=== PATIENT | male | born 1980 | race Caucasian/White ===

== ENCOUNTER 2018-03-09 17:29 | Emergency (ER) | payer BC ==
--- NOTE | 2018-03-09 18:13 | EDM.PDOCBH ---
ED HPI GENERAL MEDICAL PROBLEM - General Chief Complaint: Behavioral/Psych Stated Complaint: DEPRESSION Time Seen by Provider: 03/09/18 17:55 Source of Information: Reports: Patient History Limitations: Reports: No Limitations - History of Present Illness INITIAL COMMENTS - FREE TEXT/NARRATIVE: Patient is a 38-year-old male with a long history of depression who presents ED complaining of suicidal thoughts. Denies any suicidal plans and has not attempted to commit suicide. States over the past 4 days he's just been experiencing increasing stress with work. 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 He states just recently returned from a treatment facility because he felt like he needed it. He was discharged on 15 February on Abilify. He discontinued the Abilify 2 weeks ago. States he was not making feeling any better. States he's been sleeping a lot and lacking motivation to do anything. He still been able to work with no issues. Goes to work returns home to asleep again. He is currently on no medications. He does not have any suicidal plans, homicidal ideations, hallucinations, or findings concerning for manic episodes. He's never undergone inpatient treatment for psychiatric evaluation. He states he did attempt suicide at age of 14 years of age via overdose. States he is working on a support system here locally. His family is all from [place]. Alcohol use is social 1-2 times a week. Smokes half pack to one pack per day. Does not have a primary care provider here locally. Does not have any additional past medical history and nor is taking any medications. When asked patient admits there is a family history of thyroid issues. - Related Data Allergies Allergy/AdvReac Type Severity Reaction Status Date / Time No Known Allergies Allergy Verified 03/09/18 17:40 Home Meds: Home Meds buPROPion HCl [Wellbutrin Xl] 150 mg PO QAM #30 tab.sr.24h 03/09/18 [Rx] Past Medical History - Past Health History Medical/Surgical History: Denies Medical/Surgical History Psychiatric History: Reports: Depression Social & Family History - Family History Family Medical History: Noncontributory - Tobacco Use Smoking Status *Q: Current Every Day Smoker Years of Tobacco use: 15 Packs/Tins Daily: 0.7 - Recreational Drug Use Recreational Drug Use: No ED ROS GENERAL - Review of Systems Review Of Systems: ROS reveals no pertinent complaints other than HPI. ED EXAM, BEHAVIORAL HEALTH - Physical Exam Exam: See Below Exam Limited By: No Limitations General Appearance: Alert, WD/WN, No Apparent Distress Eye Exam: Bilateral Eye: Normal Inspection Ears: Hearing Grossly Normal Nose: Normal Inspection Throat/Mouth: Normal Voice, No Airway Compromise Neck: Normal Inspection, Supple Respiratory/Chest: No Respiratory Distress, Lungs Clear, Normal Breath Sounds Cardiovascular: Normal Peripheral Pulses, Regular Rate, Rhythm, No Murmur Neurological: Alert, Normal Mood/Affect, CN II-XII Intact, Normal Cognition, No Motor/Sensory Deficits, Oriented x 3 Psychiatric: Alert, Normal Affect, Normal Cognition, Normal Mood, Oriented Skin Exam: Warm, Dry, Intact, Normal color, No rash COURSE, BEHAVIORAL HEALTH COMP - Course Vital Signs: Last Vital Signs Temp 97.8 F 03/09/18 17:34 Pulse 77 03/09/18 17:34 Resp 16 03/09/18 17:34 BP 145/89 H 03/09/18 17:34 Pulse Ox 98 03/09/18 17:34 Orders, Labs, Meds: Laboratory Tests 03/09/18 03/09/18 03/09/18 Range/Units 18:09 18:23 18:23 WBC 5.93 (4.23-9.07) K/mm3 RBC 5.19 (4.63-6.08) M/mm3 Hgb 15.6 (13.7-17.5) gm/L Hct 46.1 (40.1-51.0) % MCV 88.8 (79.0-92.2) fl MCH 30.1 (25.7-32.2) pg MCHC 33.8 (32.2-35.5) g/dl RDW Std Deviation 43.8 (35.1-43.9) fL Plt Count 270 (163-337) K/mm3 MPV 9.3 L (9.4-12.3) fl Neutrophils % (Manual) 55 (40-60) % Band Neutrophils % 0 (0-10) % Lymphocytes % (Manual) 39 (20-40) % Atypical Lymphs % 0 % Monocytes % (Manual) 4 (2-10) % Eosinophils % (Manual) 2 (0.8-7.0) % Basophils % (Manual) 0 L (0.2-1.2) Platelet Estimate Adequate Plt Morphology Comment Normal RBC Morph Comment Normal Sodium 140 (136-145) mEq/L Potassium 3.8 (3.5-5.1) mEq/L Chloride 107 (98-107) mEq/L Carbon Dioxide 28 (21-32) mEq/L Anion Gap 8.8 (5-15) BUN 13 (7-18) mg/dL Creatinine 1.0 (0.7-1.3) mg/dL Est Cr Clr Drug Dosing 104.58 mL/min Estimated GFR (MDRD) > 60 (>60) mL/min BUN/Creatinine Ratio 13.0 L (14-18) Glucose 110 H (74-106) mg/dL Calcium 8.8 (8.5-10.1) mg/dL Total Bilirubin 0.4 (0.2-1.0) mg/dL AST 46 H (15-37) U/L ALT 82 H (16-63) U/L Alkaline Phosphatase 66 (46-116) U/L Total Protein 7.2 (6.4-8.2) g/dl Albumin 3.5 (3.4-5.0) g/dl Globulin 3.7 gm/dL Albumin/Globulin Ratio 1.0 (1-2) TSH 3rd Generation 1.967 (0.358-3.74) uIU/mL Urine Color (Yellow) Urine Appearance (Clear) Urine pH (5.0-8.0) Ur Specific Glady (1.005-1.030) Urine Protein (Negative) Urine Glucose (UA) (Negative) Urine Ketones (Negative) Urine Occult Blood (Negative) Urine Nitrite (Negative) Urine Bilirubin (Negative) Urine Urobilinogen (0.2-1.0) Ur Leukocyte Esterase (Negative) Urine RBC (0-5) /hpf Urine WBC (0-5) /hpf Ur Epithelial Cells (0-5) /hpf Urine Bacteria (FEW) /hpf Urine Mucus (FEW) /hpf Salicylates 1.7 L (2.8-20) mg/dL Urine Opiates Screen (NEGATIVE) Ur Buprenorphine Scrn (NEGATIVE) Ur Oxycodone Screen (NEGATIVE) Urine Methadone Screen (NEGATIVE) Ur Propoxyphene Screen (NEGATIVE) Acetaminophen 0 L (10-30) ug/mL Ur Barbiturates Screen (NEGATIVE) Ur Tricyclics Screen (NEGATIVE) Ur Phencyclidine Scrn (NEGATIVE) Ur Amphetamine Screen (NEGATIVE) U Methamphetamines Scrn (NEGATIVE) U Benzodiazepines Scrn (NEGATIVE) U Cocaine Metab Screen (NEGATIVE) U Marijuana (THC) Screen (NEGATIVE) Ethyl Alcohol 0.00 (0.00) gm% 03/09/18 03/09/18 Range/Units 18:37 18:37 WBC (4.23-9.07) K/mm3 RBC (4.63-6.08) M/mm3 Hgb (13.7-17.5) gm/L Hct (40.1-51.0) % MCV (79.0-92.2) fl MCH (25.7-32.2) pg MCHC (32.2-35.5) g/dl RDW Std Deviation (35.1-43.9) fL Plt Count (163-337) K/mm3 MPV (9.4-12.3) fl Neutrophils % (Manual) (40-60) % Band Neutrophils % (0-10) % Lymphocytes % (Manual) (20-40) % Atypical Lymphs % % Monocytes % (Manual) (2-10) % Eosinophils % (Manual) (0.8-7.0) % Basophils % (Manual) (0.2-1.2) Platelet Estimate Plt Morphology Comment RBC Morph Comment Sodium (136-145) mEq/L Potassium (3.5-5.1) mEq/L Chloride (98-107) mEq/L Carbon Dioxide (21-32) mEq/L Anion Gap (5-15) BUN (7-18) mg/dL Creatinine (0.7-1.3) mg/dL Est Cr Clr Drug Dosing mL/min Estimated GFR (MDRD) (>60) mL/min BUN/Creatinine Ratio (14-18) Glucose (74-106) mg/dL Calcium (8.5-10.1) mg/dL Total Bilirubin (0.2-1.0) mg/dL AST (15-37) U/L ALT (16-63) U/L Alkaline Phosphatase (46-116) U/L Total Protein (6.4-8.2) g/dl Albumin (3.4-5.0) g/dl Globulin gm/dL Albumin/Globulin Ratio (1-2) TSH 3rd Generation (0.358-3.74) uIU/mL Urine Color Yellow (Yellow) Urine Appearance Clear (Clear) Urine pH 7.0 (5.0-8.0) Ur Specific Glady 1.025 (1.005-1.030) Urine Protein Trace H (Negative) Urine Glucose (UA) Negative (Negative) Urine Ketones Negative (Negative) Urine Occult Blood Negative (Negative) Urine Nitrite Negative (Negative) Urine Bilirubin Negative (Negative) Urine Urobilinogen 0.2 (0.2-1.0) Ur Leukocyte Esterase Negative (Negative) Urine RBC 0-5 (0-5) /hpf Urine WBC 0-5 (0-5) /hpf Ur Epithelial Cells 0-5 (0-5) /hpf Urine Bacteria Few (FEW) /hpf Urine Mucus Few (FEW) /hpf Salicylates (2.8-20) mg/dL Urine Opiates Screen Negative (NEGATIVE) Ur Buprenorphine Scrn Negative (NEGATIVE) Ur Oxycodone Screen Negative (NEGATIVE) Urine Methadone Screen Negative (NEGATIVE) Ur Propoxyphene Screen Negative (NEGATIVE) Acetaminophen (10-30) ug/mL Ur Barbiturates Screen Negative (NEGATIVE) Ur Tricyclics Screen Negative (NEGATIVE) Ur Phencyclidine Scrn Negative (NEGATIVE) Ur Amphetamine Screen Negative (NEGATIVE) U Methamphetamines Scrn Negative (NEGATIVE) U Benzodiazepines Scrn Negative (NEGATIVE) U Cocaine Metab Screen Negative (NEGATIVE) U Marijuana (THC) Screen Negative (NEGATIVE) Ethyl Alcohol (0.00) gm% Medications Discontinued Medications Generic Name Dose Route Start Last Admin Trade Name Freq PRN Reason Stop Dose Admin Bupropion HCl 150 mg 03/09/18 19:33 03/09/18 19:59 Wellbutrin Xl PO 03/09/18 19:34 150 mg ONETIME ONE Administration Re-Assessment/Re-Exam: Patient states is a family history of thyroid issues. I will order a basic labs including: CBC, chem 14, urine drug tox, TSH, UA, acetaminiphen, serum EtOH, salicylate levels. Once results are back I will contact Dr. Armijo fire investigation manager telepsych provider. CBC was essentially normal. CMP revealed mildly elevated ast and alt. TSH WNL. UA trace protein. Urine drug tox negative. Salicylates and acetaminophen revealed no concerning findings. Serum ETOH 0.00. [address] Armijo. He suggested wellbutrin xl 150 every morning and follow up with psych provider and or PCP. Agrees Patient does not require inpatient evaluation. Order Wellbutrin XL 150 mg by mouth. We'll discharge patient home with instructions as documented. The patient remained hemodynamically stable while under my care in the E.D. I discussed the concerning symptoms for which to return to the E.D. with the patient. The patient verbalized understanding. All questions were answered. Departure - Departure Time of Disposition: 19:38 Disposition: Home, Self-Care 01 Condition: Good Clinical Impression: Depressive disorder - Discharge Information Prescriptions: buPROPion HCl [Wellbutrin Xl] 150 mg PO QAM #30 tab.sr.24h Instructions: Suicidal Feelings: How to Help Yourself Referrals: Alize Bertrand [Physician] - Taylor Angelo NP [Ordering Only Provider] - Trace Armijo MD [Physician] - [facility] [Outside] Forms: ED Department Discharge Additional Instructions: Take Wellbutrin xl 150 mg every morning as prescribed. Call and make an appointment with a primary care provider to establish care and for follow-up end of this week or first part of next week. May also contact [facility] for psych evaluation. Please refrain from any recreational drugs or alcohol use. Please return to ED if you develop any new or worsening symptoms as discussed.
[2018-03-09 19:08] LABS: ACETAMINOPHEN 0 ug/mL (10-30)
[2018-03-09] MEDS ORDERED: buPROPion 150 MG Tab.ER PO ONE (19:33)
== END 2018-03-09 19:52 | disposition home or self-care (01) ==
LOC: JD.ED 17:29
DX: F32.9 Major depressive disorder, single episode, unspecified (principal); F17.210 Nicotine dependence, cigarettes, uncomplicated
CPT/HCPCS: 36415; 80053; 80306; 81001; 84443; 85007; 85027; 99285; A9270; G0480

== ENCOUNTER → 2018-12-07 | Day surgery (SDC) | payer BC ==
[~2018-12-07] MED LIST: Lactated Ringers 1,000 ML IV SCH; Lidocaine 1% 2 ML ONE; Lidocaine 1%/Sod Bicarbonate in NS 8.4% 1 ML Syringe IDERM PRN; Propofol 200 MG/20 ML SDV ONE; Sodium Chloride 0.9% 10 ML Syringe FLUSH PRN
--- NOTE | 2018-12-07 09:51 | PCM.PREANE ---
Preanesthetic Assessment - Procedure Proposed Procedure: colonoscopy - Anesthesia/Transfusion/Family Hx Anesthesia History: Prior Anesthesia Without Reaction Family History of Anesthesia Reaction: No Transfusion History: No Prior Transfusion(s) - Review of Systems General: No Symptoms Pulmonary: No Symptoms Cardiovascular: No Symptoms Gastrointestinal: Diarrhea Neurological: No Symptoms Other: Reports: Depression, Anxiety - Physical Assessment NPO Status Date: 12/06/18 (0600 cigarette today) NPO Status Time: 22:30 O2 Sat by Pulse Oximetry: 94 Respiratory Rate: 16 Vital Signs: Last Vital Signs Temp 97.6 F 12/07/18 09:00 Pulse 74 12/07/18 09:00 Resp 16 12/07/18 09:00 BP 127/94 H 12/07/18 09:00 Pulse Ox 94 L 12/07/18 09:00 Height: 5 ft 11 in Weight: 90.718 kg ASA Class: 2 Mental Status: Alert & Oriented x3 Airway Class: Mallampati = 1 Dentition: Reports: Normal Dentition, Broken Tooth/Teeth Thyro-Mental Finger Breadths: 3 Mouth Opening Finger Breadths: 3 ROM/Head Extension: Full Lungs: Clear to Auscultation, Normal Respiratory Effort Cardiovascular: Regular Rate, Regular Rhythm - Allergies Allergies/Adverse Reactions: Allergies Allergy/AdvReac Type Severity Reaction Status Date / Time No Known Allergies Allergy Verified 12/04/18 10:04 - Blood Blood Available: No - Acknowledgements Anesthesia Type Planned: MAC Pt an Appropriate Candidate for the Planned Anesthesia: Yes Alternatives and Risks of Anesthesia Discussed w Pt/Guardian: Yes Pt/Guardian Understands and Agrees with Anesthesia Plan: Yes PreAnesthesia Questionnaire - Past Health History Medical/Surgical History: Denies Medical/Surgical History HEENT History: Reports: None Cardiovascular History: Reports: Other (See Below) (some sensations in chest- slight pinch- ekg done all ok) Respiratory History: Reports: SOB (smoking) Gastrointestinal History: Reports: None Genitourinary History: Reports: Other (See Below) Other Genitourinary History: frequency 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 Musculoskeletal History: Reports: None Neurological History: Reports: None Psychiatric History: Reports: Addiction, Depression, Suicide Attempt (in past) Endocrine/Metabolic History: Reports: None Hematologic History: Reports: None Immunologic History: Reports: None Oncologic (Cancer) History: Reports: None Dermatologic History: Reports: None - Past Surgical History Head Surgeries/Procedures: Reports: None HEENT Surgical History: Reports: Oral Surgery Cardiovascular Surgical History: Reports: None Respiratory Surgical History: Reports: None GI Surgical History: Reports: None Female Surgical History: Reports: None Male Surgical History: Reports: None Endocrine Surgical History: Reports: None Neurological Surgical History: Reports: None Musculoskeletal Surgical History: Reports: None Oncologic Surgical History: Reports: None Dermatological Surgical History: Reports: None - SUBSTANCE USE Smoking Status *Q: Current Every Day Smoker Tobacco Use Within Last Twelve Months: Cigarettes Second Hand Smoke Exposure: Yes Days Per Week of Alcohol Use: 3 Number of Drinks Per Day: 3 Total Drinks Per Week: 9 Recreational Drug Use History: No Recreational Drug Type: Reports: Marijuana/Hashish (not anymore) - HOME MEDS Home Medications: Home Meds . [No Known Home Meds] 12/04/18 [History] - CURRENT (IN HOUSE) MEDS Current Meds: Current Medications Lactated Ringer's (Ringers, Lactated) 1,000 mls @ 125 mls/hr IV ASDIRECTED WALKER Stop: 12/07/18 23:00 Last Admin: 12/07/18 09:15 Dose: 125 mls/hr Lidocaine/Sodium Bicarbonate (Buffered Lidocaine 1% In Ns 8.4%) 0.25 ml IDERM ONETIME PRN PRN Reason: Prior to IV Start Stop: 12/07/18 18:00 Last Admin: 12/07/18 09:15 Dose: 0.25 ml Sodium Chloride (Saline Flush) 10 ml FLUSH ASDIRECTED PRN PRN Reason: Keep Vein Open Stop: 12/07/18 18:00 Discontinued Medications Lidocaine HCl (Xylocaine-Mpf 1%) Confirm Administered Dose 2 mls @ as directed .ROUTE .STK-MED ONE Stop: 12/07/18 09:40 Lidocaine HCl (Xylocaine-Mpf 1%) Confirm Administered Dose 2 mls @ as directed .ROUTE .STK-MED ONE Stop: 12/07/18 09:40 Propofol (Diprivan 20 Ml) Confirm Administered Dose 200 mg .ROUTE .STK-MED ONE Stop: 12/07/18 09:40
--- NOTE | 2018-12-07 10:35 | PCM.OPNOTE ---
- General Post-Op/Procedure Note Date of Surgery/Procedure: 12/07/18 Operative Procedure(s): colonoscopy to cecum with canulation of ilium and collection of stool for anlysis and biopsy of rectum Pre Op Diagnosis: change in bowel habits Post-Op Diagnosis: Same Anesthesia Technique: MAC Primary Surgeon: Patrick Head EBL in mLs: 0 Complications: None Condition: Good
--- NOTE | 2018-12-07 10:42 | PCM48HPAN ---
Post Anesthesia Note - EVALUATION WITHIN 48HRS OF ANESTHETIC Vital Signs in Normal Range: Yes Patient Participated in Evaluation: Yes Respiratory Function Stable: Yes Airway Patent: Yes Cardiovascular Function Stable: Yes Hydration Status Stable: Yes Pain Control Satisfactory: Yes Nausea and Vomiting Control Satisfactory: Yes Mental Status Recovered: Yes Pulse Rate: 75 SaO2: 96 Resp Rate: 16 Temperature: 98.2 C Blood Pressure: 121/75 Pulse Rate: 75
--- NOTE | 2018-12-08 08:03 | OR ---
DATE OF OPERATION: 12/07/2018 SURGEON: Patrick Head MD PREOPERATIVE DIAGNOSIS: Change in bowel habits and CT scan showing thickening of the rectum. POSTOPERATIVE DIAGNOSIS: Change in bowel habits and CT scan showing thickening of the rectum. OPERATION PERFORMED: Colonoscopy to cecum with collection of specimen for analysis and biopsy of the rectum. ANESTHESIA: Done under IV sedation. FINDINGS: Normal study. DESCRIPTION OF PROCEDURE: The patient was taken to the endoscopy room, placed in a supine position, connected to monitoring equipment, given IV sedation, placed in the left lateral position. Perianal area was inspected and was normal. Rectal exam showed good sphincter tone. A video Olympus colonoscope was then introduced into the rectum and threaded up without problem to the cecum, where the appendicular orifice was noted. Tip of the scope was placed in the ileum and this was normal. Prep was excellent. [place] Cleansing Score grade A. The scope was slowly withdrawn demonstrating the cecum, ascending colon, transverse colon, descending colon, sigmoid colon, and rectum. Retroflexed view was done. Stool was collected as the scope was withdrawn for analysis and biopsy of the rectum was performed. The patient tolerated the procedure, sent to the recovery room in a stable condition, will be followed up in the clinic. ESTIMATED BLOOD LOSS: MMODAL /[id number]
== END | disposition home or self-care (01) ==
LOC: JD.SDS 08:56
PROVIDERS: ATTEND Surgery
DX: K62.89 Other specified diseases of anus and rectum (principal); R19.4 Change in bowel habit; F17.210 Nicotine dependence, cigarettes, uncomplicated
CPT/HCPCS: 45380; 87046; 87328; 87329; 87493; 89055; J2001; J2704; J7120; 00811

== ENCOUNTER 2019-09-21 21:40 | Emergency (ER) | payer BC ==
--- NOTE | 2019-09-21 22:00 | EDM.PDOC ---
ED HPI GENERAL MEDICAL PROBLEM - General Chief Complaint: Bite:Animal, Insect Stated Complaint: DOG BITE Time Seen by Provider: 09/21/19 21:56 - History of Present Illness INITIAL COMMENTS - FREE TEXT/NARRATIVE: 39-year-old male presents emergency room after getting bit in the right hand by a dog. 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 Identified the dog the private duty aide secured the dog. The patient passed off the package to the private duty aide the route relief driver, or patient that the dog on the top of the head and the dog bit him. The dog is up-to-date on his rabies is due for a booster in about a year. The dog is in good health. Patient's tetanus status unknown. Right Hand Pain Score (Numeric/FACES): 8 - Related Data Allergies Allergy/AdvReac Type Severity Reaction Status Date / Time No Known Allergies Allergy Verified 12/04/18 10:04 Home Meds: Home Meds . 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 Musculoskeletal History: Reports: None Neurological History: Reports: None Psychiatric History: Reports: Addiction, Depression, Suicide Attempt (in past) Endocrine/Metabolic History: Reports: None Hematologic History: Reports: None Immunologic History: Reports: None Oncologic (Cancer) History: Reports: None Dermatologic History: Reports: None - Past Surgical History Head Surgeries/Procedures: Reports: None HEENT Surgical History: Reports: Oral Surgery Cardiovascular Surgical History: Reports: None Respiratory Surgical History: Reports: None GI Surgical History: Reports: None Female Surgical History: Reports: None Male Surgical History: Reports: None Endocrine Surgical History: Reports: None Neurological Surgical History: Reports: None Musculoskeletal Surgical History: Reports: None Oncologic Surgical History: Reports: None Dermatological Surgical History: Reports: None Social & Family History - Family History Family Medical History: Noncontributory - Caffeine Use Caffeine Use: Reports: Coffee, Tea ED ROS GENERAL - Review of Systems Review Of Systems: See Below Constitutional: Reports: No Symptoms Respiratory: Reports: No Symptoms Cardiovascular: Reports: No Symptoms GI/Abdominal: Reports: No Symptoms ED EXAM, ANIMAL BITE - Physical Exam Exam: See Below Exam Limited By: No Limitations General Appearance: Alert, No Apparent Distress Respiratory/Chest: No Respiratory Distress, Lungs Clear, Normal Breath Sounds Cardiovascular: Normal Peripheral Pulses, Regular Rate, Rhythm, No Edema Extremities: Other (Ulnar aspect of his right hand has 2 puncture wounds in it and is more superficial one in the hypo-thenar eminence. His will not be repaired during irrigated and cleaned very well. Patient was started on Augmentin and received a tetanus shot.) Course - Vital Signs Last Recorded V/S: Last Vital Signs Temp 37.4 C 09/21/19 21:59 Pulse 91 09/21/19 21:59 Resp 20 09/21/19 21:59 BP 137/92 H 09/21/19 21:59 Pulse Ox 95 09/21/19 21:59 - Orders/Labs/Meds Orders: Active Orders 24 hr Category Date Time Status Vaccines to be Administered [RC] PER UNIT ROUTINE Care 09/21/19 22:06 Active Meds: Medications Discontinued Medications Generic Name Dose Route Start Last Admin Trade Name Freq PRN Reason Stop Dose Admin Amoxicillin/Clavulanate Potassium 1 tab 09/21/19 22:05 09/21/19 22:14 Augmentin 875 Mg/125 Mg PO 09/21/19 22:06 1 tab ONETIME ONE Administration Diphtheria/Tetanus/Acell Pertussis 0.5 ml 09/21/19 22:05 09/21/19 22:12 Adacel IM 09/21/19 22:06 0.5 ml .ONCE ONE Administration Departure - Departure Time of Disposition: 23:24 Disposition: Home, Self-Care 01 Clinical Impression: Dog bite of right hand - Discharge Information Instructions: Animal Bite, Adult, [id number] Referrals: PCP,None [Primary Care Provider] - Forms: ED Department Discharge Additional Instructions: Return to the emergency room with any questions problems or worsening symptoms. Take antibiotics as directed. Watch for signs of infection if this occurs promptly return to the emergency room. You may return to work without any restrictions. Tylenol or Motrin as needed for discomfort - My Orders Last 24 Hours: My Active Orders 09/21/19 22:06 Vaccines to be Administered [RC] PER UNIT ROUTINE - Assessment/Plan Last 24 Hours: My Active Orders 09/21/19 22:06 Vaccines to be Administered [RC] PER UNIT ROUTINE
[2019-09-21] MEDS ORDERED: Amoxicillin/Clavulanate K 875-125 MG Tab PO ONE (22:05)
[2019-09-21] MEDS ORDERED: Diphtheria,Pertussis(Acell),Tetanus Vaccine 0.5 ML Syringe IM ONE (22:05)
== END 2019-09-21 23:31 | disposition home or self-care (01) ==
LOC: JD.ED 21:40
DX: S61.451A Open bite of right hand, initial encounter (principal); F17.200 Nicotine dependence, unspecified, uncomplicated; Z23 Encounter for immunization; W54.0XXA Bitten by dog, initial encounter; Y93.89 Activity, other specified; Y92.79 Other farm location as the place of occurrence of the external cause; Y99.0 Civilian activity done for income or pay
CPT/HCPCS: 90471; 90715; 99283-25; A9270-GY

== ENCOUNTER 2020-03-08 17:08 | Observation (INO) | payer BC ==
[2020-03-08] MEDS ORDERED: Sodium Chloride 0.9% 1,000 ML IV STA (17:23)
[2020-03-08] MEDS ORDERED: Ondansetron 4 MG/2 ML SDV IVPUSH ONE (17:23)
[2020-03-08] MEDS ORDERED: Sodium Chloride 0.9% 10 ML Syringe FLUSH PRN (17:23)
[2020-03-08] MEDS ORDERED: HYDROmorphone 0.5 MG/0.5 ML Syringe IVPUSH ONE ×2 (17:24→19:15)
--- NOTE | 2020-03-08 17:32 | EDM.PDOC ---
ED HPI GENERAL MEDICAL PROBLEM - General Chief Complaint: Abdominal Pain Stated Complaint: ABDOMINAL PAIN/BACK PAIN Time Seen by Provider: 03/08/20 17:15 Source of Information: Reports: Patient, Provider History Limitations: Reports: No Limitations - History of Present Illness INITIAL COMMENTS - FREE TEXT/NARRATIVE: The patient presents with right upper abdominal pain and right sided back pain. This all started today with some right sided back pain and then he ate some lunch and the pain was worse and in his right upper abdomen. He has nausea but no vomiting. This has never happened before. He went to the clinic in [place] and they did some labs. The labs look good. They sent him here for further work up. He says this has never happened before. He has no fever, chills, cough, congestion, runny nose, chest pain, and shortness of breath. He still has his gallbladder and appendix. Onset: Gradual Duration: Hour(s): Location: Reports: Abdomen, Back Quality: Reports: Sharp Severity: Moderate Improves with: Reports: None Worsens with: Reports: Eating Associated Symptoms: Reports: Nausea/Vomiting. Denies: Chest Pain, Cough, Fever /Chills, Headaches, Shortness of Breath Right Flank Pain Score (Numeric/FACES): 5 - Related Data Allergies Allergy/AdvReac Type Severity Reaction Status Date / Time No Known Allergies Allergy Verified 03/08/20 17:19 Home Meds: Home Meds . 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 Musculoskeletal History: Reports: None Neurological History: Reports: None Psychiatric History: Reports: Addiction, Depression, Suicide Attempt Endocrine/Metabolic History: Reports: None Hematologic History: Reports: None Immunologic History: Reports: None Oncologic (Cancer) History: Reports: None Dermatologic History: Reports: None - Past Surgical History Head Surgeries/Procedures: Reports: None HEENT Surgical History: Reports: Oral Surgery Cardiovascular Surgical History: Reports: None Respiratory Surgical History: Reports: None GI Surgical History: Reports: None Male Surgical History: Reports: None Endocrine Surgical History: Reports: None Neurological Surgical History: Reports: None Musculoskeletal Surgical History: Reports: None Oncologic Surgical History: Reports: None Dermatological Surgical History: Reports: None Social & Family History - Family History Family Medical History: Noncontributory - Tobacco Use Smoking Status *Q: Current Every Day Smoker Years of Tobacco use: 10 Packs/Tins Daily: 0.3 - Caffeine Use Caffeine Use: Reports: None - Recreational Drug Use Recreational Drug Use: No ED ROS GENERAL - Review of Systems Review Of Systems: See Below Constitutional: Reports: No Symptoms HEENT: Reports: No Symptoms Respiratory: Reports: No Symptoms Cardiovascular: Reports: No Symptoms Endocrine: Reports: No Symptoms GI/Abdominal: Reports: Abdominal Pain, Nausea. Denies: Diarrhea, Vomiting : Reports: No Symptoms Musculoskeletal: Reports: Back Pain ED EXAM, GI/ABD - Physical Exam Exam: See Below Exam Limited By: No Limitations General Appearance: Alert, No Apparent Distress Ears: Normal External Exam Nose: Normal Inspection Head: Atraumatic, Normocephalic Neck: Normal Inspection Respiratory/Chest: No Respiratory Distress, Lungs Clear, Normal Breath Sounds Cardiovascular: Regular Rate, Rhythm, No Edema, No Murmur GI/Abdominal Exam: Soft, No Organomegaly, No Mass, Tender (Moderate tenderness to the RUQ) Course - Vital Signs Last Recorded V/S: Last Vital Signs Temp 97.1 F 03/08/20 17:15 Pulse 84 03/08/20 18:43 Resp 16 03/08/20 18:43 BP 128/92 H 03/08/20 18:43 Pulse Ox 96 03/08/20 18:43 - Orders/Labs/Meds Orders: Active Orders 24 hr Category Date Time Status Peripheral IV Care [RC] . DIRECTED Care 03/08/20 17:23 Active Abdomen Ltd [US] Stat Exams 03/08/20 17:23 Taken UA W/MICROSCOPIC [URIN] Stat Lab 03/08/20 18:50 Results HYDROmorphone [Dilaudid] Med 03/08/20 19:15 Once 0.5 mg IVPUSH ONETIME ONE Sodium Chloride 0.9% [Saline Flush] Med 03/08/20 17:23 Active 10 ml FLUSH ASDIRECTED PRN ED Antiemetic Medication Reflex [OM.PC] Stat Oth 03/08/20 17:23 Ordered Peripheral IV Insertion Adult [OM.PC] Stat Oth 03/08/20 17:23 Ordered Medication Orders Hydromorphone HCl (Dilaudid) 0.5 mg IVPUSH ONETIME ONE Stop: 03/08/20 19:16 Sodium Chloride (Saline Flush) 10 ml FLUSH ASDIRECTED PRN PRN Reason: Keep Vein Open Last Admin: 03/08/20 17:40 Dose: 10 ml Labs: Laboratory Tests 03/08/20 03/08/20 Range/Units 17:40 18:50 Lipase 122 (73-393) U/L Urine Color Yellow (Yellow) Urine Appearance Slt cloudy H (Clear) Urine pH 8.0 (5.0-8.0) Ur Specific [place] 1.025 (1.005-1.030) Urine Protein Negative (Negative) Urine Glucose (UA) Negative (Negative) Urine Ketones Negative (Negative) Urine Occult Blood Negative (Negative) Urine Nitrite Negative (Negative) Urine Bilirubin Negative (Negative) Urine Urobilinogen 0.2 (0.2-1.0) Ur Leukocyte Esterase Negative (Negative) Meds: Medications Generic Name Dose Route Start Last Admin Trade Name Freq PRN Reason Stop Dose Admin Hydromorphone HCl 0.5 mg 03/08/20 19:15 Dilaudid IVPUSH 03/08/20 19:16 ONETIME ONE Sodium Chloride 10 ml 03/08/20 17:23 03/08/20 17:40 Saline Flush FLUSH 10 ml ASDIRECTED PRN Administration Keep Vein Open Discontinued Medications Generic Name Dose Route Start Last Admin Trade Name Freq PRN Reason Stop Dose Admin Hydromorphone HCl 0.5 mg 03/08/20 17:24 03/08/20 17:45 Dilaudid IVPUSH 03/08/20 17:25 0.5 mg ONETIME ONE Administration Sodium Chloride 1,000 mls @ 1,000 mls/hr 03/08/20 17:23 03/08/20 17:47 Normal Saline IV 03/08/20 18:22 1,000 mls/hr .BOLUS STA Administration Ondansetron HCl 4 mg 03/08/20 17:23 03/08/20 17:43 Zofran IVPUSH 03/08/20 17:24 4 mg ONETIME ONE Administration - Re-Assessments/Exams Free Text/Narrative Re-Assessment/Exam: 03/08/20 17:38 I ordered an IV NS 1L bolus, zofran 4mg IV, dilaudid 0.5mg IV, lipase and an US of his gallbladder. 03/08/20 18:55 His WBC was normal at 10.6. His CMP is negative. His US shows cholelithiasis with supporting evidence of acute cholecystitis. I called Dr Martines and he wanted me to give him some zosyn and admit him over night. Departure - Departure Time of Disposition: 19:20 Disposition: Refer to Observation Condition: Fair Clinical Impression: Cholecystitis Cholelithiases Qualifiers: Cholelithiasis location: gallbladder Cholecystitis presence: with cholecystitis Cholecystitis acuity: acute Biliary obstruction: without biliary obstruction Qualified Code(s): K80.00 - Calculus of gallbladder with acute cholecystitis without obstruction - Discharge Information Referrals: PCP,None [Primary Care Provider] - Forms: ED Department Discharge Sepsis Event Note - Evaluation Sepsis Screening Result: No Definite Risk - Focused Exam Vital Signs: Vital Signs Temp Pulse Resp BP Pulse Ox 03/08/20 18:43 84 16 128/92 H 96 03/08/20 17:15 97.1 F 72 18 118/79 100 Date Exam was Performed: 03/08/20 Time Exam was Performed: 19:16 - My Orders Last 24 Hours: My Active Orders 03/08/20 17:23 Peripheral IV Care [RC] . DIRECTED Abdomen Ltd [US] Stat Sodium Chloride 0.9% [Saline Flush] 10 ml FLUSH ASDIRECTED PRN ED Antiemetic Medication Reflex [OM.PC] Stat Peripheral IV Insertion Adult [OM.PC] Stat 03/08/20 18:50 UA W/MICROSCOPIC [URIN] Stat 03/08/20 19:15 HYDROmorphone [Dilaudid] 0.5 mg IVPUSH ONETIME ONE - Assessment/Plan Last 24 Hours: My Active Orders 03/08/20 17:23 Peripheral IV Care [RC] . DIRECTED Abdomen Ltd [US] Stat Sodium Chloride 0.9% [Saline Flush] 10 ml FLUSH ASDIRECTED PRN ED Antiemetic Medication Reflex [OM.PC] Stat Peripheral IV Insertion Adult [OM.PC] Stat 03/08/20 18:50 UA W/MICROSCOPIC [URIN] Stat 05/13/20 19:15 HYDROmorphone [Dilaudid] 0.5 mg IVPUSH ONETIME ONE
[2020-03-08] MEDS ORDERED: Piperacillin/Tazobactam 4.5 GM in Sodium Chloride 0.9% 100 ML IV ONE (19:16)
[2020-03-08] MEDS: Sodium Chloride 0.9% 1,000 ML IV SCH (21:13)
[2020-03-08] MEDS ORDERED: Ondansetron 4 MG/2 ML SDV IVPUSH PRN (21:58)
[2020-03-08] MEDS ORDERED: HYDROmorphone 0.5 MG/0.5 ML Syringe IVPUSH PRN (22:02)
[2020-03-09] MEDS ORDERED: Piperacillin/Tazobactam 4.5 GM in Sodium Chloride 0.9% 100 ML IV SCH (01:35)
[2020-03-09] MEDS: Piperacillin/Tazobactam 4.5 GM in Sodium Chloride 0.9% 100 ML IV SCH ×4 (04:47→14:21)
[2020-03-09] MEDS: Sodium Chloride 0.9% 1,000 ML IV SCH (06:48)
--- NOTE | 2020-03-09 07:28 | US ---
Limited abdominal ultrasound: Multiple real-time images of the upper right abdomen were obtained. Comparison: No previous abdominal imaging is available. Findings: Two large gallstones are seen within the gallbladder measuring approximately 2.5 cm and 2.9 cm. No gallbladder wall thickening or biliary duct dilatation is seen. Liver shows no discrete abnormality. Right kidney shows no hydronephrosis or mass and has a length of 10.9 cm. Pancreas is obscured from bowel gas. Inferior vena cava is patent. Main portal vein shows normal hepatopedal flow. Impression: 1. Two large gallstones with no gallbladder wall thickening or biliary duct dilatation. 2. Nonvisualized pancreas. Diagnostic code #2 This report was dictated in MDT I agree with preliminary report from [facility], finalized on 03/08/20, 7:36 PM Central Daylight Time
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
[2020-03-09] MEDS ORDERED: Lidocaine 1% 4 ML ONE (09:17)
[2020-03-09] MEDS ORDERED: Lactated Ringers 1,000 ML ONE (09:17)
[2020-03-09] MEDS ORDERED: Rocuronium 50 MG/5 ML Vial ONE (09:17)
[2020-03-09] MEDS ORDERED: Ondansetron 4 MG/2 ML SDV ONE (09:17)
[2020-03-09] MEDS ORDERED: Propofol 200 MG/20 ML SDV ONE (09:17)
[2020-03-09] MEDS ORDERED: Midazolam 1 MG/ML 2 ML SDV ONE (09:17)
[2020-03-09] MEDS ORDERED: fentaNYL 250 MCG/5 ML SDV ONE (09:17)
[2020-03-09] MEDS ORDERED: Dexamethasone 4 MG/ML 5 ML MDV ONE (09:17)
[2020-03-09] MEDS ORDERED: Ketorolac 30 MG/ML SDV ONE (09:18)
[2020-03-09] MEDS ORDERED: Bupivacaine 0.5%/EPINEPHrine 1:200,000 50 ML MDV ONE (09:37)
[2020-03-09] MEDS ORDERED: HYDROmorphone 0.5 MG/0.5 ML Syringe IVPUSH PRN (11:46)
[2020-03-09] MEDS ORDERED: fentaNYL 100 MCG/2 ML SDV IVPUSH PRN (11:46)
[2020-03-09] MEDS ORDERED: Ondansetron 4 MG/2 ML SDV IVPUSH PRN (11:46)
[2020-03-09] MEDS ORDERED: HYDROmorphone 0.5 MG/0.5 ML Syringe ONE (11:58)
--- NOTE | 2020-03-09 13:01 | PCM.POSTAN ---
POST ANESTHESIA ASSESSMENT - MENTAL STATUS Mental Status: Alert, Oriented - VITAL SIGNS Vital Signs: Last Vital Signs Temp 97.9 F 03/09/20 08:19 Pulse 85 03/09/20 08:19 Resp 18 03/09/20 08:19 BP 128/75 03/09/20 08:19 Pulse Ox 98 03/09/20 08:19 125/80 70 11 97.8 100% - RESPIRATORY Respiratory Status: Respiratory Rate WNL, Airway Patent, O2 Saturation Stable, Supplemental Oxygen - CARDIOVASCULAR CV Status: Pulse Rate WNL, Blood Pressure Stable - GASTROINTESTINAL GI Status: No Symptoms - PAIN Pain Score: 0 - POST OP HYDRATION Hydration Status: Adequate & Stable
--- NOTE | 2020-03-09 13:01 | PCM.PRNOTE ---
- Free Text/Narrative Note: Operative Report Operation: laparoscopic cholecystectomy Date: 03/09/2020 Attending Surgeon: Luis Martines MD Assisting: Armani PELAEZ Indication for Surgery:acute cholecystitis Preoperative antibiotics:zosyn VTE prophylaxis: SCDs Estimated Blood Loss: 20 cc Findings: inflamed gallbladder with large gallstones. Critical view of safety established. Detailed Report: The patient underwent general endotracheal anesthesia after being placed supine on the operating table and initial timeout. The abdomen was prepped and draped in sterile fashion. A pre-incision timeout was performed confirming the patient s identity and the operation to be performed. A Veress needle was inserted into the abdominal cavity below the left costal margin along the mid-clavicular line. The abdomen was insufflated with CO2 to 15 mm Hg. Gas was aspirated below the umbilicus with a syringe in order to ensure safe placement of a 5 mm bladed laparoscopic port. The 5mm 30 degree laparoscope was then inserted and viscera inspected. The gallbladder appeared edematous and inflamed. Two additional 5 mm ports were placed along the right subcostal region under direct vision with the laparoscope, and a 12 mm port was placed at the subxiphoid region. The gallbladder was grasped at the fundus with a locking grasper and retracted anteriorly and superiorly, exposing the infundibulum. This was grasped with the surgeons left hand grasper and retracted laterally. The hook electrode was used to open the overlying peritoneum, and this plane of dissection was developed along the edges of the gallbladder at its interface with the liver bed. A combination of hook electrode, blunt dissection with the suction jack spooler tender and the [place] grasper were used to carefully expose and skeletonize the cystic duct and artery. A critical view of safety was obtained. Hemolock clips were then placed on both structures. The duct and artery were transected with laparoscopic scissors between the hemolock clips. The hook was then used to dissect the gallbladder free from its attachment to the liver. The specimen was then placed in an Endocatch bag and removed through the subxiphoid port. The liver bed was irrigated and suctioned thoroughly. The field was inspected and appeared hemostatic. The larger subxiphoid port was closed at the level of the fascia with vicryl suture using the PMI laparoscopic suture passer. Pneumoperitoneum was then released. All skin incisions were then closed with placement of subcuticular vicryl suture and dressed with dermabond. A total of 20 cc 0.5% marcaine with epinephrine was used for local anesthesia at the incision sites. The patient tolerated the operation well, was extubated in the operating room and transferred to the PACU for routine post-anesthesia care. Luis Martines MD General Surgery
--- NOTE | 2020-03-09 13:04 | PCM.DCSUM1 ---
Discharge Summary - Hospital Course Free Text/Narrative:: Admitted through the emergency department last night with findings of acute calculous cholecystitis. Went to OR today for laparoscopic cholecystectomy, which was completed without incident. The patient was deemed fit for discharge to home from the recovery unit. - Discharge Data Discharge Date: 03/09/20 Discharge Disposition: Home, Self-Care 01 Condition: Good - Referral to Home Health Primary Care Physician: PCP None - Patient Instructions Diet: Usual Diet as Tolerated Activity: No Lifting Over 10 Pounds Showering/Bathing: May Shower Wound/Incision Care: Keep Operative Site/Wound Site Clean and Dry Notify Provider of: Fever, Increased Pain, Swelling and Redness, Drainage, Nausea and/or Vomiting - Discharge Plan *PRESCRIPTION DRUG MONITORING PROGRAM REVIEWED*: Not Applicable *COPY OF PRESCRIPTION DRUG MONITORING REPORT IN PATIENT LIBBY: Not Applicable Prescriptions/Med Rec: oxyCODONE 5 mg PO Q4H PRN #10 tab PRN Reason: Pain Home Medications: Home Meds oxyCODONE 5 mg PO Q4H PRN #10 tab 03/09/20 [Rx] Oxygen Therapy Mode: Room Air Patient Handouts: Steps to Quit Smoking Forms: ED Department Discharge Referrals: PCP,None [Primary Care Provider] - - Discharge Summary/Plan Comment DC Time >30 min.: No Discharge Summary/Plan Comment: Plan for post-op follow up in clinic in about 2 weeks. - Patient Data Vitals - Most Recent: Last Vital Signs Temp 36.6 C 03/09/20 12:55 Pulse 70 03/09/20 12:55 Resp 11 L 03/09/20 12:55 BP 125/80 03/09/20 12:55 Pulse Ox 100 03/09/20 12:55 Weight - Most Recent: 86.409 kg I&O - Last 24 hours: Intake & Output 03/08/20 03/09/20 03/09/20 22:59 06:59 14:59 Intake Total 120 956 Balance 120 956 Lab Results - Last 24 hrs: Laboratory Results - last 24 hr 03/08/20 03/08/20 03/09/20 Range/Units 17:40 18:50 10:10 Lipase 122 (73-393) U/L Urine Color Yellow (Yellow) Urine Appearance Slt cloudy H (Clear) Urine pH 8.0 (5.0-8.0) Ur Specific [place] 1.025 (1.005-1.030) Urine Protein Negative (Negative) Urine Glucose (UA) Negative (Negative) Urine Ketones Negative (Negative) Urine Occult Blood Negative (Negative) Urine Nitrite Negative (Negative) Urine Bilirubin Negative (Negative) Urine Urobilinogen 0.2 (0.2-1.0) Ur Leukocyte Esterase Negative (Negative) Urine RBC 0-5 (0-5) /hpf Urine WBC 0-5 (0-5) /hpf Ur Squamous Epith Cells 0-5 (0-5) /hpf Amorphous Sediment Many H (NOT SEEN) /hpf Urine Bacteria Few (FEW) /hpf Urine Mucus Not seen (FEW) /hpf SARS Virus RNA (PCR) Negative (NEGATIVE) Med Orders - Current: Current Medications Fentanyl (Sublimaze) 50 mcg IVPUSH Q5M PRN PRN Reason: Pain Stop: 03/09/20 14:00 Hydromorphone HCl (Dilaudid) 0.5 mg IVPUSH Q2H PRN PRN Reason: Pain Hydromorphone HCl (Dilaudid) 0.5 mg IVPUSH Q10M PRN PRN Reason: Pain (severe 7-10) Stop: 03/09/20 14:00 Sodium Chloride (Normal Saline) 1,000 mls @ 100 mls/hr IV ASDIRECTED [facility] Last Admin: 03/09/20 06:48 Dose: 100 mls/hr Piperacillin Sod/Tazobactam (Sod 4.5 gm/ Sodium Chloride) 100 mls @ 25 mls/hr IV Q8H [facility] Last Admin: 03/09/20 04:47 Dose: 25 mls/hr Ondansetron HCl (Zofran) 4 mg IVPUSH Q6H PRN PRN Reason: Nausea/Vomiting Ondansetron HCl (Zofran) 4 mg IVPUSH ONETIME PRN PRN Reason: Nausea/Vomiting Stop: 03/09/20 14:00 Sodium Chloride (Saline Flush) 10 ml FLUSH ASDIRECTED PRN PRN Reason: Keep Vein Open Last Admin: 03/08/20 17:40 Dose: 10 ml Discontinued Medications Bupivacaine HCl/Epinephrine Bitart (Marcaine 0.5%/Epinephrine 1:200,000) Confirm Administered Dose 50 ml .ROUTE .STK-MED ONE Stop: 03/09/20 09:38 Last Admin: 03/09/20 11:56 Dose: 50 ml Dexamethasone (Dexamethasone) Confirm Administered Dose 20 mg .ROUTE .STK-MED ONE Stop: 03/09/20 09:18 Fentanyl (Sublimaze) Confirm Administered Dose 250 mcg .ROUTE .STK-MED ONE Stop: 03/09/20 09:18 Glycopyrrolate () Confirm Administered Dose 1 mg .ROUTE .STK-MED ONE Stop: 03/09/20 09:18 Hydromorphone HCl (Dilaudid) 0.5 mg IVPUSH ONETIME ONE Stop: 03/08/20 17:25 Last Admin: 03/08/20 17:45 Dose: 0.5 mg Hydromorphone HCl (Dilaudid) 0.5 mg IVPUSH ONETIME ONE Stop: 03/08/20 19:16 Last Admin: 03/08/20 19:35 Dose: 0.5 mg Hydromorphone HCl (Dilaudid) Confirm Administered Dose 0.5 mg .ROUTE .STK-MED ONE Stop: 03/09/20 11:59 Sodium Chloride (Normal Saline) 1,000 mls @ 1,000 mls/hr IV .BOLUS STA Stop: 03/08/20 18:22 Last Admin: 03/08/20 17:47 Dose: 1,000 mls/hr Piperacillin Sod/Tazobactam (Sod 4.5 gm/ Sodium Chloride) 100 mls @ 200 mls/hr IV ONETIME ONE Stop: 03/08/20 19:45 Last Admin: 03/08/20 19:35 Dose: 200 mls/hr Piperacillin Sod/Tazobactam (Sod 4.5 gm/ Sodium Chloride) 100 mls @ 25 mls/hr IV Q8H [facility] Last Admin: 03/09/20 07:51 Dose: Not Given Lidocaine HCl (Xylocaine-Mpf 1%) Confirm Administered Dose 4 mls @ as directed .ROUTE .STK-MED ONE Stop: 03/09/20 09:18 Lactated Ringer's (Ringers, Lactated) Confirm Administered Dose 1,000 mls @ as directed .ROUTE .STK-MED ONE Stop: 03/09/20 09:18 Ketorolac Tromethamine (Toradol) Confirm Administered Dose 30 mg .ROUTE .STK- MED ONE Stop: 03/09/20 09:19 Midazolam HCl (Versed 1 Mg/Ml) Confirm Administered Dose 2 mg .ROUTE .STK-MED ONE Stop: 03/09/20 09:18 Neostigmine Methylsulfate (Neostigmine Methylsulfate) Confirm Administered Dose 5 mg .ROUTE .STK-MED ONE Stop: 03/09/20 09:18 Ondansetron HCl (Zofran) 4 mg IVPUSH ONETIME ONE Stop: 03/08/20 17:24 Last Admin: 03/08/20 17:43 Dose: 4 mg Ondansetron HCl (Zofran) Confirm Administered Dose 4 mg .ROUTE .STK-MED ONE Stop: 03/09/20 09:18 Propofol (Diprivan 20 Ml) Confirm Administered Dose 400 mg .ROUTE .STK-MED ONE Stop: 03/09/20 09:18 Rocuronium Jeffrey (Zemuron) Confirm Administered Dose 50 mg .ROUTE .STK-MED ONE Stop: 03/09/20 09:18
--- NOTE | 2020-03-09 13:25 | PCM.SN.2 ---
- Free Text/Narrative Note: 03/09/20 1315- Patient in PACU. Shanika DALEY said patient coughed and ended up spitting out a tooth. Left incisor tooth sheared off. No bleeding. No roots on tooth. Atraumatic intubation prior. Tooth intact in OR.
--- NOTE | 2020-03-09 15:10 | PCM48HPAN ---
Post Anesthesia Note - EVALUATION WITHIN 48HRS OF ANESTHETIC Vital Signs in Normal Range: Yes Patient Participated in Evaluation: Yes Respiratory Function Stable: Yes Airway Patent: Yes Cardiovascular Function Stable: Yes Hydration Status Stable: Yes Pain Control Satisfactory: Yes (nurse will medicate) Nausea and Vomiting Control Satisfactory: Yes Mental Status Recovered: Yes Vital Signs: Last Vital Signs Temp 97.9 F 03/09/20 13:30 Pulse 58 L 03/09/20 13:44 Resp 14 03/09/20 13:44 BP 135/80 03/09/20 13:44 Pulse Ox 100 03/09/20 13:44 - COMMENTS/OBSERVATIONS Free Text/Narrative:: Complains of some discomfort in abd. Discussed unexplained tooth issue and encouraged to see a dentist as soon as possible. States he will see one ASSP. He said he is not mad and has good dental insurance.
[2020-03-09] MEDS ORDERED: oxyCODONE 5 MG Tab PO PRN (16:56)
== END 2020-03-09 20:20 | disposition home or self-care (01) ==
LOC: JD.ED 17:08 → JD.MS 19:35
PROVIDERS: ADMIT Surgery; ATTEND Surgery
DX: K80.12 Calculus of gallbladder with acute and chronic cholecystitis without obstruction (principal); F32.9 Major depressive disorder, single episode, unspecified; F17.210 Nicotine dependence, cigarettes, uncomplicated
CPT/HCPCS: 36415; 47562; 76705; 81001; 83690; 85025; 87635; 96374; 96375; 96376; 99285; A9270; J1100; J1170; J1885; J2001; J2250; J2405; J2543; J2704; J2710; J3010; J3490; J7030; J7050; J7120; 00790; 96361; 96365; 99283; U0002

== ENCOUNTER 2021-05-08 21:41 | Emergency (ER) | payer OTHER, BC ==
[2021-05-08] MEDS ORDERED: Amoxicillin/Clavulanate K 875-125 MG Tab PO ONE (22:13)
--- NOTE | 2021-05-08 22:21 | EDM.PDOC ---
ED HPI GENERAL MEDICAL PROBLEM - General Chief Complaint: Bite:Animal, Insect Stated Complaint: ANIMAL BITE/DOG Time Seen by Provider: 05/08/21 21:49 Source of Information: Reports: Patient, RN Notes Reviewed History Limitations: Reports: No Limitations - History of Present Illness INITIAL COMMENTS - FREE TEXT/NARRATIVE: Patient is a 41-year-old male who presents to the ER for evaluation of a dog bite. 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 This did result in a few superficial scrapes, and one smaller deeper puncture wound. The chef & owner states that the dog is up-to-date on his vaccinations, and this was reported to police. The patient is complaining of some mild tenderness in the area, but no numbness or tingling distal to the injury. Bleeding is under control at this time. Patient denies any other sick-like symptoms, fever/chills, cough/shortness of breath, nausea/vomiting/diarrhea. Patient is up-to-date on Tetanus booster. Left Leg Pain Score (Numeric/FACES): 3 - Related Data Allergies Allergy/AdvReac Type Severity Reaction Status Date / Time No Known Allergies Allergy Verified 05/08/21 21:58 Home Meds: Home Meds Amoxicillin/Clavulanate K [Augmentin 875-125 MG] 1 tab PO BID #13 tablet 05/08/21 [Rx] Past Medical History Respiratory History: Reports: SOB Gastrointestinal History: Reports: Chronic Diarrhea Other Gastrointestinal History: Had chronic diarrhea for about one year. After colonoscopy he had no further issues. Genitourinary History: Reports: Other (See Below) Other Genitourinary History: urinary hesitancy, frequency. Musculoskeletal History: Reports: Fracture Other Musculoskeletal History: right and left arm broken as a child at different times. Psychiatric History: Reports: Addiction, Depression, Suicide Attempt - Past Surgical History HEENT Surgical History: Reports: Oral Surgery GI Surgical History: Reports: Colonoscopy Social & Family History - Family History Family Medical History: No Pertinent Family History HEENT: Reports: None Cardiac: Reports: None Respiratory: Reports: None GI: Reports: None : Reports: None OBGYN: Reports: None Musculoskeletal: Reports: Osteoporosis Psychiatric: Reports: Depression Other Psychiatric Family History: Mom Endocrine/Metabolic: Reports: Hypothyroidism, Osteoporosis Other Endocrine/Metabolic Family History: Mom - Tobacco Use Tobacco Use Status *Q: Never Tobacco User Second Hand Smoke Exposure: No - Caffeine Use Caffeine Use: Reports: Coffee, Energy Drinks, Tea Caffeine Use Comment: Drinks two cups coffee per day. Occasional tea and occasional red bull. - Recreational Drug Use Recreational Drug Use: No ED ROS GENERAL - Review of Systems Review Of Systems: Comprehensive ROS is negative, except as noted in HPI. ED EXAM, ANIMAL BITE - Physical Exam Exam: See Below Exam Limited By: No Limitations General Appearance: Alert, WD/WN, No Apparent Distress Respiratory/Chest: No Respiratory Distress, Lungs Clear, Normal Breath Sounds, No Accessory Muscle Use, Chest Non-Tender Cardiovascular: Normal Peripheral Pulses, Regular Rate, Rhythm, No Edema Extremities: Normal Range of Motion, Normal Capillary Refill, Other (dog bite to right lateral leg) Neurological: Alert, Oriented, Normal Cognition, No Motor/Sensory Deficits Psychiatric: Normal Affect, Normal Mood Skin Exam: Normal Color, Warm/Dry, Other (Dog bite to right lateral calf, just inferior to the knee. There is 1 area that is slightly deeper than the rest, and measures about 1 cm in length. The rest are superficial scratches.) Course - Vital Signs Last Recorded V/S: Last Vital Signs Temp 98 F 05/08/21 21:57 Pulse 95 05/08/21 21:57 Resp 16 05/08/21 21:57 BP 135/93 H 05/08/21 21:57 Pulse Ox 97 05/08/21 21:57 - Orders/Labs/Meds Meds: Medications Discontinued Medications Generic Name Dose Route Start Last Admin Trade Name Ned PRN Reason Stop Dose Admin Amoxicillin/Clavulanate Potassium 1 tab 05/08/21 22:13 05/08/21 22:23 Amoxicillin/Clavulanate K 875-125 Mg Tab PO 05/08/21 22:14 1 tab ONETIME ONE Administration - Re-Assessments/Exams Free Text/Narrative Re-Assessment/Exam: 05/08/21 22:17 Patient presents to the ER for the evaluation of his dog bite. Due to the nature of the wound, the one area that was slightly larger, would maybe benefit from one suture, or leaving the wound open to drain due to it being a dog bite. Patient opted to not have the area sutured, he is aware that it will scar probably a little bit more than it would have if he would have been sutured. He verbalized understanding of this. Departure - Departure Time of Disposition: 22:18 Disposition: Home, Self-Care 01 Condition: Good Clinical Impression: Dog bite of right lower leg Qualifiers: Encounter type: initial encounter Qualified Code(s): S81.851A - Open bite, right lower leg, initial encounter - Discharge Information *PRESCRIPTION DRUG MONITORING PROGRAM REVIEWED*: No *COPY OF PRESCRIPTION DRUG MONITORING REPORT IN PATIENT LIBBY: No Prescriptions: Amoxicillin/Clavulanate K [Augmentin 875-125 MG] 1 tab PO BID #13 tablet Instructions: Animal Bite, Adult, [id number] Referrals: PCP,None [Primary Care Provider] - Forms: ED Department Discharge, ED Return to Work/School Form Additional Instructions: You were evaluated in this ER for your dog bite on your right lower leg. Please keep this area well cleansed with soapy water, do not submerge the leg for any period of time until the wound start to heal. You may use nonstick pads or gauze to the wound itself with topical bacitracin ointment into the wound tract, and you may adhere the bandage with some Coban wrap, or other self stick sports bandage wrap. You have been started on an antibiotic, Augmentin, for antibiotic coverage due to this being a dog bite. You have been given your first dose in the ER, and the remainder has been sent to [facility] pharmacy located on [address], you will need to go there tomorrow during normal business hours and pick these up and take as directed, dosing will be 1 tablet 2 times a day until gone. Please note this antibiotic is pretty notorious for causing diarrhea, highly and strongly recommend you talk with the pharmacist to get a probiotic like Florajen, to help replenish the good gut bacteria that will likely be killed by the broad-spectrum antibiotic Augmentin. Please keep in contact with local police force, to make sure that the dog was indeed vaccinated for rabies. Do not hesitate to return to the ER at any time if symptoms should change or worsen. Sepsis Event Note (ED) - Evaluation Sepsis Screening Result: No Definite Risk - Focused Exam Vital Signs: Vital Signs Temp Pulse Resp BP Pulse Ox 05/08/21 21:57 98 F 95 16 135/93 H 97
== END 2021-05-08 22:35 | disposition home or self-care (01) ==
LOC: JD.ED 21:41
DX: S81.851A Open bite, right lower leg, initial encounter (principal); W54.0XXA Bitten by dog, initial encounter
CPT/HCPCS: 99283; A9270

== ENCOUNTER 2023-10-24 18:43 | Emergency (ER) | payer BC, OTHER ==
[2023-10-24] MEDS ORDERED: Sodium Chloride 0.9% 10 ML Syringe FLUSH PRN (19:21)
[2023-10-24 19:46] LABS: BASOPHILS PERCENT AUTO 0.5 % (0.0-1.0); EOSINOPHILS PERCENT AUTO 0.1 % (0.0-6.0); HEMATOCRIT 46.8 % (42.0-52.0); IMMATURE GRAN ABSOLUTE AUTO 0.01 K/mm3 (0.00-0.05); IMMATURE GRAN PERCENT AUTO 0.1 % (0.0-0.4); LYMPHOCYTES ABSOLUTE AUTO 1.9 K/mm3 (1.0-4.8); LYMPHOCYTES PERCENT AUTO 23.5 % (24.0-44.0); MEAN CORPUSCULAR HEMOGLOBIN 29.7 pg (28.0-32.0); MEAN CORPUSCULAR HGB CONC 34.2 g/dl (32.0-36.0); MEAN PLATELET VOLUME 8.6 fl (9.4-12.4); MONOCYTES ABSOLUTE AUTO 0.8 K/mm3 (0.0-0.8); MONOCYTES PERCENT AUTO 10.3 % (0.0-8.0); NEUTROPHILS ABSOLUTE AUTO 5.3 K/mm3 (1.8-7.7); NEUTROPHILS PERCENT AUTO 65.5 % (41.0-71.0); PLATELET COUNT,PLT 281 K/mm3 (150-400); RED BLOOD CELL COUNT 5.38 M/mm3 (4.52-5.90); WHITE BLOOD CELL COUNT,WBC 8.03 K/mm3 (3.9-11.3)
[2023-10-24] MEDS ORDERED: Sodium Chloride 0.9% 10 ML Syringe FLUSH ONE (19:58)
[2023-10-24] MEDS ORDERED: Iopamidol 612 MG/ML 100 ML Bottle IVPUSH ONE (19:58)
[2023-10-24] MEDS ORDERED: Ketorolac 30 MG/ML SDV IVPUSH ONE (20:02)
[2023-10-24 20:04] LABS: INR 0.94; PROTHROMBIN TIME 10.1 SECONDS (9.7-12.0)
[2023-10-24 20:05] LABS: PTT,PARTIAL THROMBOPLSTIN TIME 27.3 SECONDS (21.7-31.4)
[2023-10-24 20:07] LABS: A/G RATIO 0.9 (1-2); ALBUMIN 3.7 g/dl (3.4-5.0); ANION GAP 10.1 (5-15); BILIRUBIN TOTAL 0.5 mg/dL (0.2-1.0); CREATININE 1.2 mg/dL (0.7-1.3); EST CRCL DRUG DOSING (CG) 82.8 mL/min; POTASSIUM,K 4.1 mEq/L (3.5-5.1); PROTEIN TOTAL,TP 7.7 g/dl (6.4-8.2)
[2023-10-24] MEDS ORDERED: Midazolam 1 MG/ML 2 ML SDV IVPUSH ONE (21:01)
== END 2023-10-24 23:05 | disposition home or self-care (01) ==
LOC: JD.ED 18:43
DX: T18.5XXA Foreign body in anus and rectum, initial encounter (principal)
CPT/HCPCS: 36415; 74018; 74177; 80053; 80307; 85025; 85610; 85730; 96374; 96375; 99284; J1885; J2250; J3490; Q9967